=== PATIENT | female | born 1955 | race Hispanic/Latino ===

== ENCOUNTER 2016-11-17 05:56 | Day surgery (SDC) | payer MEDICARE, OTHER ==
[2016-11-17] MEDS ORDERED: ECOTRIN PO ONE (07:22)
[2016-11-17] MEDS ORDERED: NACL 0.9% 500 ML 500 ML ONE (07:22)
[2016-11-17] MEDS ORDERED: HEPARIN/NS 5000 UNIT/500ML(CATH LAB) 1,000 ML IR ONE (08:02)
[2016-11-17] MEDS ORDERED: HEPARIN 10,000 UNITS/10 ML ONE (08:02)
[2016-11-17] MEDS ORDERED: XYLOCAINE 2% INFILTRATI ONE (08:03)
[2016-11-17] MEDS ORDERED: SUBLIMAZE ONE (08:03)
[2016-11-17] MEDS ORDERED: VERSED ONE (08:03)
[2016-11-17] MEDS ORDERED: CALAN ONE (08:06)
[2016-11-17] MEDS ORDERED: NITROGLYCERIN SYRINGE 0 ML ONE (08:06)
[2016-11-17] MEDS ORDERED: ZOFRAN ONE (09:03)
--- NOTE | 2016-11-17 10:44 | Cardiac Catherization Report ---
CARDIAC CATHETERIZATION CLINICAL INFORMATION: The patient is a 61-year-old white female with history of breast cancer, status post Adriamycin treatment with no history of hypertension or diabetes mellitus, but has strong family history, is having chest pains and was noted to have abnormal nuclear using which showed evidence of ischemia in the mid anterolateral and apical lateral myocardial mario. Ejection fraction was normal. The echocardiogram showed ejection fraction lower limits of normal, to be around 45-50%. She is having chest pain suggestive of angina, hence scheduled for cardiac catheterization. The patient is aware of the procedure, potential complications, and the alternatives of therapy available. DESCRIPTION OF PROCEDURE: The patient was brought to the catheterization laboratory in a fasting condition. The right wrist area and forearm thoroughly cleansed with Betadine solution and sterile drapes were applied. Local anesthesia was achieved using 2% Xylocaine. Right radial artery puncture was made using 21-gauge arterial puncture needle. Subsequently, a 5-Romansh sheath was introduced. A 5-Romansh multipurpose catheter was used to obtain the angiograms of the left ventricle done in KRAFT projection followed by angiograms of the left coronary artery in multiple views and angiograms of the right coronary artery in multiple views. At the end of the procedure, catheter and sheath were removed. Good hemostasis was achieved with pressure bandage. Following findings were noted. HEMODYNAMICS: 1. Opening aortic pressure 103/60, left ventricular pressure 103/14, no gradient across the aortic valve with estimated ejection fraction of 50%. 2. Left ventriculogram done in KRAFT projection using hand injection showed very mild hypokinesis of the anterior wall. Overall, ejection fraction was felt to be lower limits of normal in the range of 50%. Mitral regurgitation could not be evaluated because of limited amount of dye. Right coronary artery dominant vessel arises normally from the right coronary cusp, angiographically smooth and normal. 3. Left coronary artery arises normally from left coronary cusp. Left main is very short, immediately dividing into LAD and circumflex branches. LAD shows mild 10% smooth lesion at the ostium. Otherwise, rest of the LAD and its branches, circumflex artery and its branches are angiographically smooth and normal. FINAL IMPRESSION: Left ventricular function lower limits of normal with normal end diastolic pressure. Ejection fraction was lower limits of normal in the range of 50%. Otherwise, only very mild 10% smooth ostial lesion of the LAD noted. Otherwise, rest of the coronaries are angiographically smooth and normal. At this time, the patient will be continued on risk factor modification. Etiology of her stress thallium is not clear. Most likely, her nuclear imaging may be false positive. JOB# [id number] CAESAR/ZEN
--- NOTE | 2016-11-17 14:24 | Short Stay Summary ---
Short Stay Documentation Date of service: 11/17/16 - History H&P: obtained from office - Brief post op/procedure progress note Date of procedure: 11/17/16 Pre-op diagnosis: chest pain, abnormal stress test Procedure: left heart cath - Hospital course Hospital course: Please see dictated cath report. - Disposition Condition at discharge: Stable - Discharge Diagnoses (1) Chest pain Status: Acute Qualifiers: Chest pain type: C (2) Abnormal stress test Status: Acute (3) History of breast cancer Status: Chronic Short Stay Discharge Plan Activity: advance as tolerated Weight Bearing Status: Weight Bear as Tolerated Wound: keep clean and dry
== END 2016-11-17 05:57 | disposition home or self-care (01) ==
LOC: CATH 05:56
PROVIDERS: ATTEND Internal Medicine
DX: R07.9 Chest pain, unspecified (principal); Z85.3 Personal history of malignant neoplasm of breast; Z90.49 Acquired absence of other specified parts of digestive tract; Z90.710 Acquired absence of both cervix and uterus; Z90.10 Acquired absence of unspecified breast and nipple; Z83.3 Family history of diabetes mellitus; Z82.49 Family history of ischemic heart disease and other diseases of the circulatory system; Z80.8 Family history of malignant neoplasm of other organs or systems
CPT/HCPCS: 93005; 93010; 93458; C1894; J1644; J2250; J2405; J3010; J7040; Q9967

== ENCOUNTER 2022-03-25 08:29 | Day surgery (SDC) | payer MEDICARE ==
[2022-03-25] MEDS ORDERED: SODIUM CHLORIDE 0.9% 500 ML 500 ML IV SCH (10:00)
[2022-03-25] MEDS ORDERED: SODIUM CHLORIDE 0.9% 250ML 250 ML ONE (10:50)
[2022-03-25] MEDS ORDERED: LIDOCAINE (2%) 20 MG/1 ML VIAL 50 ML MDV INFILTRATI ONE (10:50)
[2022-03-25] MEDS ORDERED: ceFAZolin/Water 2 GM/20 ML 2 GM/20 ML SYRINGE IV ONE (10:51)
[2022-03-25] MEDS ORDERED: LIDOCAINE (1%) 10 MG/1 ML VIAL 20 ML MDV ONE (11:02)
[2022-03-25] MEDS ORDERED: ONDANSETRON 4 MG/2 ML INJ ONE (12:25)
[2022-03-25] MEDS: MIDAZOLAM 2 MG/2 ML INJ ONE ×2 (12:28→12:36)
[2022-03-25] MEDS: fentaNYL 100 MCG/2 ML INJ ONE ×2 (12:29→12:35)
[2022-03-25] MEDS ORDERED: MIDAZOLAM 2 MG/2 ML INJ ONE (12:38)
[2022-03-25 13:49] VITALS: BP 100/52
--- NOTE | 2022-03-30 14:07 | Electrophysiological Studies ---
DATE OF SERVICE: 03/25/2022 PROCEDURE: Loop recorder removal. DESCRIPTION OF PROCEDURE: The patient was brought to the [facility]. Surface electrodes attached to the ECG recording. The patient was then prepped and draped in the usual sterile fashion. Local anesthesia was obtained with 2% lidocaine. Antibiotics were given prior to the procedure. An incision of 0.5 cm was made near the device. Using blunt dissection, the device was removed from the pocket. The pocket was irrigated with normal saline. CLOSURE: 2-0 Vicryl and 4-0 Vicryl. The incision was protected with Steri- Strips, gauze, and clear adhesive dressing. COMPLICATIONS: None. ESTIMATED BLOOD LOSS: Less than 1 mL. ASSESSMENT: Successful removal of implantable loop recorder. PLAN: Follow up for incision check in 8 days. TID: [id number] RECEIPT: [id number] JOSELUIS/GORDON/SARAH/BUD ROMERO
== END 2022-03-25 14:03 | disposition home or self-care (01) ==
LOC: CATHLABREC 08:29
PROVIDERS: ATTEND Internal Medicine Cardiovascular Disease
DX: Z45.09 Encounter for adjustment and management of other cardiac device (principal); R07.9 Chest pain, unspecified; R94.39 Abnormal result of other cardiovascular function study; M19.90 Unspecified osteoarthritis, unspecified site; F41.9 Anxiety disorder, unspecified; D64.9 Anemia, unspecified; Z79.899 Other long term (current) drug therapy; Z79.82 Long term (current) use of aspirin; Z85.3 Personal history of malignant neoplasm of breast; Z90.49 Acquired absence of other specified parts of digestive tract; Z98.82 Breast implant status; Z90.710 Acquired absence of both cervix and uterus; Z98.890 Other specified postprocedural states; Z90.12 Acquired absence of left breast and nipple; Z86.73 Personal history of transient ischemic attack (TIA), and cerebral infarction without residual deficits
CPT/HCPCS: 33286; J0690; J2250; J2405; J3010; J7040; J7050; J3490